=== PATIENT | female | born 1940 | race Caucasian/White ===

== ENCOUNTER 2016-04-24 11:16 | Day surgery (SDC) | payer OTHER ==
[~2016-04-24 11:16] MED LIST: AMLO5TAB22 PO; CALTCHW4 PO; COUM4TAB7 PO; COZA50TA PO; GARL500T PO; METO50CR PO; MEVA40TA PO; OCUVTAB PO; UNIS25TA2 PO; WARF3TAB PO
[2016-04-24] MEDS ORDERED: PROPOFOL 200 MG/20 ML AMP IV ONE (11:27)
[2016-04-24] MEDS ORDERED: FLEC1TAB8 PO (12:33)
[2016-04-24] MEDS ORDERED: VITA500T49 PO (12:33)
[2016-04-24] MEDS ORDERED: AMLO5TAB2 PO (12:33)
[2016-04-24] MEDS ORDERED: LOSA50TA PO (12:33)
[2016-04-24] MEDS ORDERED: GARL10CA2 PO (12:33)
[2016-04-24] MEDS ORDERED: WARF-20 PO (12:33)
[2016-04-24] MEDS ORDERED: ATOR20TA15 PO (12:33)
[2016-04-24] MEDS ORDERED: VITA100036 PO (12:33)
[2016-04-24] MEDS ORDERED: METO50TA11 PO (12:33)
[2016-04-24] MEDS ORDERED: UNIS50CA PO (12:33)
[2016-04-24] MEDS ORDERED: INSULIN HUMAN REGULAR 1,000 UNITS/10 ML VIAL SQ PRN (12:45)
[2016-04-24] MEDS ORDERED: SODIUM CHLORID 0.9% 500 ML IV SCH (13:00)
[2016-04-24] MEDS ORDERED: LACTATED RINGER'S 1000 ML IV SCH (13:00)
[2016-04-24] MEDS ORDERED: METOPROLOL TARTRATE 25 MG TAB PO PRN (13:00)
--- NOTE | 2016-04-25 17:38 | EKG ---
Date Performed: 04/24/2016 Time Performed: 12:45:04 PTAGE: 76 years EKG: Sinus bradycardia with 1st degree A-V block Poor R wave progression When compared to prior tracing patient is now in Sinus rhythm . Abnormal ECG PREVIOUS TRACING : 04/13/2014 11.35 DOCTOR: Eufemia Fiore Interpretating Date/Time 04/25/2016 17:37:09
--- NOTE | 2016-04-27 13:11 | ETE ---
Study Study Date:04/24/2016 STUDY CONCLUSIONS SUMMARY - Aortic valve: Though transvalvular gradients indicate stenosisin the moderate to severe range; visually the aortic valve opens reasonably well, more in the moderately stenotic range. Cusp separation was reduced. No evidence of vegetation. Transvalvular velocity was increased more than expected. There was moderate to severe stenosis. Moderate regurgitation. - Left ventricle: The cavity size was normal. Wall thickness was normal. Systolic function was normal. Wall motion was normal; there were no regional wall motion abnormalities. - Mitral valve: No evidence of vegetation. - Left atrium: No evidence of thrombus in the atrial cavity or appendage. The appendage was morphologically a left appendage, multilobulated, and of normal size. Emptying velocity was reduced. - Tricuspid valve: No evidence of vegetation. Mild regurgitation. - Pulmonic valve: No evidence of vegetation. If LV function is below 40, please consider prescribing an ACEI or ARB or document rationale for non-use. PROCEDURE DATA Consent: The risks, benefits, and alternatives to the procedure were explained to the patient and informed consent was obtained. Procedure: Initial setup. The patient was brought to the laboratory in the fasting state. Intravenous access was obtained. Surface ECG leads and pulse oximetric signals were monitored. Sedation. Deep sedation was administered by anesthesiology. Transesophageal echocardiography. Topical anesthesia was obtained using viscous lidocaine. A transesophageal probe was inserted by the attending critical care physician. Image quality was good. Study completion: All IVs inserted during the procedure were removed. The patient tolerated the procedure well. There were no complications. Transesophageal echocardiography. 2D, complete spectral Doppler, and color Doppler. Height: Height: 61in. Weight: Weight: 128.7lb. Body mass index: BMI: 24.4kg/m^2. Body surface area: BSA: 1.57m^2. CARDIAC ANATOMY LEFT VENTRICLE: The cavity size was normal. Wall thickness was normal. Systolic function was normal. Wall motion was normal; there were no regional wall motion abnormalities. AORTIC VALVE: Though transvalvular gradients indicate stenosisin the moderate to severe range; visually the aortic valve opens reasonably well, more in the moderately stenotic range. Trileaflet; moderately thickened, moderately calcified leaflets. Cusp separation was reduced. No evidence of vegetation. Doppler: Transvalvular velocity was increased more than expected. There was moderate to severe stenosis. Moderate regurgitation. Mean gradient: 35mm Hg (S). Peak gradient: 64mm Hg (S). Aorta: - There was no atheroma. There was no evidence for dissection. Aortic root: The aortic root was not dilated. Ascending aorta: The ascending aorta was normal in size. Aortic arch: The aortic arch was normal in size. Descending aorta: The descending aorta was normal in size. MITRAL VALVE: Structurally normal valve. Leaflet separation was normal. No evidence of vegetation. Doppler: Trace regurgitation. LEFT ATRIUM: The atrium was normal in size. No evidence of thrombus in the atrial cavity or appendage. The appendage was morphologically a left appendage, multilobulated, and of normal size. Emptying velocity was reduced. RIGHT VENTRICLE: The cavity size was normal. Wall thickness was normal. Systolic function was normal. PULMONIC VALVE: Structurally normal valve. No evidence of vegetation. TRICUSPID VALVE: Structurally normal valve. Leaflet separation was normal. No evidence of vegetation. Doppler: Mild regurgitation. PULMONARY ARTERY: The main pulmonary artery was normal-sized. RIGHT ATRIUM: The atrium was normal in size. PERICARDIUM: There was no pericardial effusion. Patient weight: 128.7lb _Ejection fraction:_ 65-75% _Fractional shortening:_ 32% up to 5Kg 5-11.5Kg 11.6-22.9Kg 23-45Kg 45-57Kg Aortic Root 7-13 <17 13-22 17-27 17-27 LA diam 6-13 <23 24-38 33-47 37-40 RVID 10-17 7-15 7-15 7-18 8-17 LVIDd 12-22 <32 24-38 33-47 37-40 LVPW 2-4 3-6 5-7 6-8 7-8 IVS 2-4 3-6 5-7 6-8 7-8 DOPPLER MEASUREMENTS ADULT NORMAL Aortic valve Peak velocity, S 401 cm/s Mean velocity, S 269 cm/s VTI, S 95.1 cm Mean gradient, S 35 mm Hg Peak gradient, S 64 mm Hg LEGEND: Mean values are shown as u=mean value. Asterisk (*) mak values outside specified normal range. Prepared and signed by Jacoby Villar [id number]
== END 2016-04-24 14:12 | disposition home or self-care (01) ==
LOC: HDIC 11:16 → HDOC 11:16
PROVIDERS: ATTEND Nuclear Medicine Nuclear Cardiology
DX: I35.0 Nonrheumatic aortic (valve) stenosis (principal); I44.0 Atrioventricular block, first degree
CPT/HCPCS: 93005; 93312; 93320; 93325

== ENCOUNTER 2016-07-09 11:04 | Emergency (ER) | payer OTHER ==
[~2016-07-09] VITALS: Ht 154.9 cm; Wt 56.5 kg
[~2016-07-09 11:04] MED LIST changes: +AMLO5TAB2 PO; -AMLO5TAB22 PO; +ATOR20TA15 PO; -CALTCHW4 PO; -COUM4TAB7 PO; -COZA50TA PO; +FLEC1TAB8 PO; +GARL10CA2 PO; -GARL500T PO; +LOSA50TA PO; -METO50CR PO; +METO50TA11 PO; -MEVA40TA PO; -OCUVTAB PO; -UNIS25TA2 PO; +UNIS50CA PO; +VITA100036 PO; +VITA500T49 PO; +WARF-20 PO; -WARF3TAB PO
[2016-07-09 11:06] VITALS: BP 179/74; PULSE 73; RESP 16; TEMP 97.7; O2SAT 99
[2016-07-09] MEDS ORDERED: SODIUM CHLOR 0.9% 1000 ML INJ 1,000 ML IV ONE (11:37)
--- NOTE | 2016-07-09 11:38 | PD ---
HPI Chief Complaint: General Weakness Time Seen by Provider: 11:38 Travel History International Travel<30 days: No Contact w/Intl Traveler<30days: No Traveled to known affect area: No History of Present Illness HPI 76-year-old female with a history of hypertension, hyperlipidemia, TIA, atrial fibrillation anticoagulated on Coumadin presents to the emergency department for evaluation of dizziness and weakness. The patient states that 10 days ago she developed a cold with nasal congestion, runny nose, sore throat and cough. States that the cough has persisted she does have some sputum production. States that 3 days after her cold began she began to have intermittent dizziness and weakness. States that she went to see her PCP and was told that her B12 was too high and that she should cut back on her supplementation. States that that was 3 days ago and she has had worsening dizziness and weakness since then. States that the dizziness is aggravated with walking, feels as though she is off balance. States that the dizziness is not constant, it does improve however the patient cannot identify any alleviating factors. She denies fever, chills, nausea, vomiting, chest pain, shortness of breath, abdominal pain, numbness or tingling, one-sided weakness. No other complaints. PCP Dr. Baker. [facility] Past Medical History Hx Anticoagulant Therapy: Yes Atrial Fibrillation: Yes Blood Disorders: No Heart Rhythm Problems: Yes Cancer: No Cardiovascular Problems: Yes (AFIB) High Cholesterol: Yes Chest Pain: No Congestive Heart Failure: No Cerebrovascular Accident: Yes Diminished Hearing: No Endocrine: No Gastrointestinal Disorders: No Genitourinary: No Hypertension: Yes Immune Disorder: No Musculoskeletal: No Neurologic: Yes Psychiatric: No Reproductive: No Respiratory: No Menopausal: Yes : 5 Para: 5 Past Surgical History Other Surgery: No (ABLATION X 2 05/2012, 07/2012) Social History Alcohol Use: No Tobacco Use: No Substance Use: No Allergies-Medications (Allergen,Severity, Reaction): Coded Allergies: BOO Inhibitors (Verified Allergy, Severe, 07/09/16) Cardizem (Verified Allergy, Severe, 07/09/16) Labetalol (Verified Allergy, Severe, 07/09/16) Uncoded Allergies: PACERONE (Allergy, Severe, 06/05/12) Reported Meds & Prescriptions Reported Meds & Active Scripts Active Meclizine (Meclizine HCl) 25 Mg Tab 25 Mg PO TID PRN 5 Days Reported Warfarin 4 Mg Tab 4 Mg PO DIRECTED Vitamin D3 (Cholecalciferol) 1,000 Unit Cap 1,000 Units PO DAILY Vitamin B12 (Cyanocobalamin) 500 Mcg Tab 1,000 Mcg PO DAILY Unisom Sleepgels (Diphenhydramine (Sleep)) 50 Mg Cap 50 Mg PO HS PRN Metoprolol Succinate ER 24 HR (Metoprolol Succinate) 50 Mg Tab 50 Mg PO DAILY Losartan (Losartan Potassium) 50 Mg Tab 50 Mg PO DAILY Garlic 10 Mg Cap Unknown Dose PO DAILY Flecainide (Flecainide Acetate) 50 Mg Tab 50 Mg PO BID Atorvastatin (Atorvastatin Calcium) 20 Mg Tab 20 Mg PO HS Amlodipine (Amlodipine Besylate) 5 Mg Tab 5 Mg PO DAILY Review of Systems Except as stated in HPI: all other systems reviewed are Neg Physical Exam Narrative GENERAL: Well-nourished and well-developed pleasant patient in no acute distress who is nontoxic appearing. SKIN: Warm and dry. HEAD: Normocephalic and atraumatic. EYES: No injection, drainage, or hyphema noted. PERRLA. EOMI. ENT: No nasal drainage noted. Oropharynx is clear. The tympanic membranes have mild effusion bilaterally but no erythema, bulging or loss of landmarks. NECK: Supple and the trachea is midline. CARDIOVASCULAR: Regular rate and rhythm. RESPIRATORY: Breath sounds are equal bilaterally with no accessory muscle use, wheezing, rhonchi, or crackles. GASTROINTESTINAL: Abdomen is soft, non-tender, and nondistended. MUSCULOSKELETAL: No obvious deformities, swelling, cyanosis, or ecchymosis is present throughout the upper and lower extremities. Patient has full range of motion without any signs of neurovascular compromise. Strength 5/5 upper and lower extremities and equal bilaterally. NEUROLOGICAL: Awake, alert, and oriented. Normal speech. [id number] test is normal. Finger to nose test is normal. Patient able to stand without difficulty but once she began to ambulate she lost her balance and required assistance. Cranial nerves are grossly intact. Data Data Last Documented VS Vital Signs Date Time Temp Pulse Resp B/P Pulse Ox O2 Delivery O2 Flow Rate FiO2 07/09/16 13:05 60 174/77 100 Room Air 07/09/16 11:55 16 07/09/16 11:06 97.7 Orders Electrocardiogram (07/09/16 11:37) Complete Blood Count With Diff (07/09/16 11:37) Comprehensive Metabolic Panel (07/09/16 11:37) Magnesium (Mg) (07/09/16 11:37) Troponin I (07/09/16 11:37) Act Partial Throm Time (Ptt) (07/09/16 11:37) Prothrombin Time / Inr (Pt) (07/09/16 11:37) Urinalysis - C+S If Indicated (07/09/16 11:37) Chest, Single Ap (07/09/16 11:37) Ct Brain W/O Iv Contrast(Rout) (07/09/16 11:37) Ecg Monitoring (07/09/16 11:37) Iv Access Insert/Monitor (07/09/16 11:37) Oximetry (07/09/16 11:37) Meclizine (Antivert) (07/09/16 11:45) Sodium Chloride 0.9% Flush (Ns Flush) (07/09/16 11:45) Sodium Chlor 0.9% 1000 Ml Inj (Ns 1000 M (07/09/16 11:37) Mra Brain W/O Contrast (Cow) (07/09/16 ) Alprazolam (Xanax) (07/09/16 12:30) Diazepam (Valium) (07/09/16 12:30) Mri Brain W/O Contrast (07/09/16 ) Labs Laboratory Tests Test 07/09/16 07/09/16 11:45 12:35 White Blood Count 6.9 TH/MM3 Red Blood Count 4.38 MIL/MM3 Hemoglobin 12.9 GM/DL Hematocrit 37.2 % Mean Corpuscular Volume 84.9 FL Mean Corpuscular Hemoglobin 29.4 PG Mean Corpuscular Hemoglobin 34.7 % Concent Red Cell Distribution Width 14.5 % Platelet Count 385 TH/MM3 Mean Platelet Volume 7.6 FL Neutrophils (%) (Auto) 74.3 % Lymphocytes (%) (Auto) 12.4 % Monocytes (%) (Auto) 11.4 % Eosinophils (%) (Auto) 1.0 % Basophils (%) (Auto) 0.9 % Neutrophils # (Auto) 5.2 TH/MM3 Lymphocytes # (Auto) 0.9 TH/MM3 Monocytes # (Auto) 0.8 TH/MM3 Eosinophils # (Auto) 0.1 TH/MM3 Basophils # (Auto) 0.1 TH/MM3 CBC Comment DIFF FINAL Differential Comment Prothrombin Time 53.2 SEC Prothromb Time International 4.5 RATIO Ratio Activated Partial 43.6 SEC Thromboplast Time Sodium Level 134 MEQ/L Potassium Level 4.2 MEQ/L Chloride Level 100 MEQ/L Carbon Dioxide Level 26.4 MEQ/L Anion Gap 8 MEQ/L Blood Urea Nitrogen 10 MG/DL Creatinine 0.76 MG/DL Estimat Glomerular Filtration 74 ML/MIN Rate Random Glucose 117 MG/DL Calcium Level 9.4 MG/DL Magnesium Level 2.1 MG/DL Total Bilirubin 0.5 MG/DL Aspartate Amino Transf 19 U/L (AST/SGOT) Alanine Aminotransferase 23 U/L (ALT/SGPT) Alkaline Phosphatase 85 U/L Troponin I LESS THAN 0.02 NG/ML Total Protein 7.4 GM/DL Albumin 3.6 GM/DL Urine Color LIGHT-YELLOW Urine Turbidity HAZY Urine pH 8.0 Urine Specific [place] 1.007 Urine Protein NEG mg/dL Urine Glucose (UA) NEG mg/dL Urine Ketones NEG mg/dL Urine Occult Blood NEG Urine Nitrite NEG Urine Bilirubin NEG Urine Urobilinogen LESS THAN 2.0 MG/DL Urine Leukocyte Esterase NEG Urine RBC LESS THAN 1 /hpf Urine WBC 1 /hpf Urine Amorphous Sediment FEW Microscopic Urinalysis Comment CULT NOT INDICATED MDM Medical Decision Making Medical Screen Exam Complete: Yes Emergency Medical Condition: Yes Differential Diagnosis Dehydration versus electrolyte abnormality versus pneumonia versus CVA versus intracranial hemorrhage Narrative Course 76-year-old female returns to the emergency department for evaluation of dizziness and weakness. Patient is afebrile. She is slightly hypertensive with a blood pressure 179/74. Otherwise vital signs within normal limits. On physical examination the patient is noted to have difficulty ambulating without assistance and loses her balance. IV access is obtained, labs have been drawn and sent. Patient is placed on cardiac telemetry and pulse oximetry monitoring. Head CT has been ordered to rule out intracranial hemorrhage. MRI has been ordered and is pending to rule out CVA. EKG shows normal sinus rhythm with no acute ST elevations or depressions. CBC is unremarkable. CMP is unremarkable. Troponin is less than 0.02. Coags show INR is slightly supratherapeutic at 4.5. Urinalysis is unremarkable. Chest x-ray is negative. Head CT is negative. MRA of brain is negative. MRI of the brain shows nonspecific foci of increased T2 white matter signal however involvement of the corpus callosum as well as the subcortical U fibers of the right parietal lobe suggestive possible demyelination secondary to multiple sclerosis, correlate with patient's medical history. Pattern is not significant change as compared to prior MRI. No evidence of acute infarct. Patient reports improvement of dizziness after meclizine. I discussed all findings with the patient and family. She is able to ambulate safely and is eager to go home. She is instructed to follow-up as an outpatient with neurologist Dr. Singh regarding nonspecific MRI findings and dizziness as well as follow-up with her PCP. Patient verbalizes understanding and agreement with treatment plan. I discussed the case with my attending physician Dr. Squires who is aware of the patients history, physical examination findings, and treatment plan. Physician Communication Physician Communication I spoke with Dr. Singh neurologist on-call regarding the patient's MRI findings , she feels these nonspecific findings are likely not indicative of MS as patient has no prior history. She agrees this is appropriate for outpatient follow-up. Diagnosis Primary Impression: Dizziness Referrals: Alea Singh MD Primary Care Physician Patient Instructions: Dizziness (ED), General Instructions Additional Instructions: Take medication as prescribed. Follow-up with Dr. Singh and your PCP. Return to the ED for any acute worsening of symptoms. Med/Other Pt SpecificInfo: Prescription(s) given Scripts Meclizine 25 Mg Tab25 Mg PO TID PRN (VERTIGO) 5 Days Ref 0 Prov:Topher Squires MD 07/09/16 Disposition: 01 DISCHARGE HOME Condition: Stable Jannette Gilbert Jul 09, 2016 11:38
[2016-07-09] MEDS ORDERED: MECLIZINE HCL 25 MG TAB PO ONE (11:45)
[2016-07-09] MEDS ORDERED: SODIUM CHLORIDE 0.9% FLUSH 10 ML FLUSH IVF PRN (11:45)
[2016-07-09 11:55] VITALS: BP 187/91; PULSE 60; RESP 16; O2SAT 100
[2016-07-09 11:59] LABS: AUTOMATED NEUTROPHIL # 5.2 TH/MM3 (1.8-7.7); BASOPHIL # 0.1 TH/MM3 (0-0.2); BASOPHIL % 0.9 % (0.0-2.0); EOSINOPHIL # 0.1 TH/MM3 (0-0.4); HEMATOCRIT 37.2 % (35.0-46.0); HEMO FLAGS DIFF FINAL; LYMPH % 12.4 % (9.0-44.0); LYMPHOCYTE # 0.9 TH/MM3 (1.0-4.8); MEAN CELL VOLUME 84.9 FL (80.0-100.0); MEAN CORPUSCULAR HEMOGLOBIN 29.4 PG (27.0-34.0); MEAN CORPUSCULAR HGB CONC 34.7 % (32.0-36.0); MONO % 11.4 % (0.0-8.0); NEUT % 74.3 % (16.0-70.0); PLATELET COUNT 385 TH/MM3 (150-450); RED BLOOD COUNT 4.38 MIL/MM3 (4.00-5.30); RED CELL DISTRIBUTION WIDTH 14.5 % (11.6-17.2); WHITE BLOOD COUNT 6.9 TH/MM3 (4.0-11.0)
[2016-07-09 12:08] LABS: APTT (PATIENT) 43.6 SEC (24.3-30.1); INTERNATIONAL NORMALIZED RATIO 4.5 RATIO; PROTHROMBIN TIME - PATIENT 53.2 SEC (9.8-11.6)
--- NOTE | 2016-07-09 12:24 | RADRPT ---
EXAM DATE/TIME: 07/09/2016 11:33 [facility] COMPARISON: CHEST SINGLE AP, June 05, 2012, 13:39. INDICATIONS : Cough MEDICAL HISTORY : Hypertension. SURGICAL HISTORY : None. ENCOUNTER: Initial ACUITY: 2 weeks PAIN SCORE: 0/10 LOCATION: chest FINDINGS: A single view of the chest demonstrates the lungs to be symmetrically aerated without evidence of mas s, infiltrate or effusion. The cardiomediastinal contours are unremarkable. Osseous structures are intact. CONCLUSION: No acute disease. Kassy Steen MD on July 09, 2016 at 12:12 Board Certified Radiologist. This report was verified electronically.
[2016-07-09 12:25] LABS: ANION GAP 8 MEQ/L (5-15); AST (GOT) 19 U/L (15-37); BICARBONATE 26.4 MEQ/L (21.0-32.0); BLOOD UREA NITROGEN 10 MG/DL (7-18); CHLORIDE 100 MEQ/L (98-107); GLOMERULAR FILTRATION RATE 74 ML/MIN (>89); MAGNESIUM 2.1 MG/DL (1.5-2.5); POTASSIUM 4.2 MEQ/L (3.5-5.1); SODIUM (NA) 134 MEQ/L (136-145)
[2016-07-09 12:30] LABS: ALKALINE PHOSPHATASE 85 U/L (45-117); ALT (GPT) 23 U/L (10-53); TOTAL BILIRUBIN ADULT 0.5 MG/DL (0.2-1.0)
[2016-07-09] MEDS ORDERED: ALPRAZolam 0.25 MG TAB PO ONE (12:30)
[2016-07-09] MEDS ORDERED: DIAZEPAM 5 MG TAB PO ONE (12:30)
--- NOTE | 2016-07-09 13:03 | RADRPT ---
EXAM DATE/TIME: 07/09/2016 12:39 [facility] COMPARISON: CT BRAIN W/O CONTRAST, December 08, 2011, 10:03. INDICATIONS : General weakness and dizziness for one week. RADIATION DOSE: 30.94 CTDIvol (mGy) MEDICAL HISTORY : Stroke. Hypertension. SURGICAL HISTORY : None. ENCOUNTER: Initial ACUITY: 1 day PAIN SCALE: 0/10 LOCATION: Bilateral head TECHNIQUE: Multiple contiguous axial images were obtained of the head. Using automated exposure control and adj ustment of the mA and/or kV according to patient size, radiation dose was kept as low as reasonably a chievable to obtain optimal diagnostic quality images. FINDINGS: CEREBRUM: The ventricles are normal for age. No evidence of midline shift, mass lesion, hemorrhage or acute in farction. No extra-axial fluid collections are seen. POSTERIOR FOSSA: The cerebellum and brainstem are intact. The 4th ventricle is midline. The cerebellopontine angle i s unremarkable. EXTRACRANIAL: The visualized portion of the orbits is intact. SKULL: The calvaria is intact. No evidence of skull fracture. CONCLUSION: No acute disease. Kassy Steen MD on July 09, 2016 at 13:01 Board Certified Radiologist. This report was verified electronically.
[2016-07-09 13:05] VITALS: BP 174/77; PULSE 60; O2SAT 100
[2016-07-09 13:09] LABS: BLOOD, URINE NEG (NEG); COMMENT (UR) CULT NOT INDICATED; CULTURE IF INDICATED CULT NOT INDICATED; GLUCOSE,URINE NEG (NEG); KETONE, URINE NEG (NEG); NITRITE,URINE NEG (NEG); URINE COLOR LIGHT-YELLOW (YELLW/STRAW)
--- NOTE | 2016-07-09 14:29 | RADRPT ---
EXAM DATE/TIME: 07/09/2016 13:19 [facility] COMPARISON: MRI BRAIN W & W/O CONTRAST, December 08, 2011, 18:29. MRA BRAIN W/O CONTRAST, December 08, 2011, 18:29. CT BRAIN W/O CONTRAST, July 09, 2016, 12:39. INDICATIONS : CVA. Dizziness. MEDICAL HISTORY : Hypertension. SURGICAL HISTORY : None. ENCOUNTER: Initial ACUITY: 1 week PAIN SCORE: 0/10 LOCATION: cranial TECHNIQUE: Multiplanar, multisequence MRI of the brain was performed without contrast. FINDINGS: CEREBRUM: The ventricles are normal for age. No evidence of midline shift, mass lesion, hemorrhage or acute in farction. No extraaxial fluid collections are seen. The pituitary gland and suprasellar cistern are normal in configuration. WHITE MATTER: Scattered foci of increased T2 signal seen predominantly in a periventricular distribution, however, some do appear to abut the corpus callosum on the right and there is an area of focal increased T2 si gnal seen within the subcortical white matter involving the right parietal lobe. No associated restri cted diffusion. POSTERIOR FOSSA: The cerebellum and brainstem are intact. The 4th ventricle is midline. The cerebellopontine angle is unremarkable. The cerebellar tonsils are normal in position. DIFFUSION IMAGING: No focal areas of restricted diffusion are seen. No evidence of acute infarction. EXTRACRANIAL: The visualized portions of the orbits and paranasal sinuses are unremarkable. CONCLUSION: Nonspecific foci of increased T2 white matter signal, however, involvement of the corpus callosum as well as the subcortical U fibers of the right parietal lobe suggest possible demyelination secondary to multiple sclerosis, correlate with patient's medical history. This pattern is not significantly ch anged as compared to the prior MRI. No evidence of acute infarct. Kassy Steen MD on July 09, 2016 at 14:24 Board Certified Radiologist. This report was verified electronically.
--- NOTE | 2016-07-09 14:30 | RADRPT ---
EXAM DATE/TIME: 07/09/2016 13:19 [facility] COMPARISON: MRA BRAIN W/O CONTRAST, December 08, 2011, 18:29. INDICATIONS : CVA. Dizziness. MEDICAL HISTORY : Hypertension. SURGICAL HISTORY : None. ENCOUNTER: Initial ACUITY: 1 day PAIN SCORE: 0/10 LOCATION: cranial Please note a normal MRA of the brain does not entirely exclude the possibility of a small aneurysm, nor the possibility of distal intracranial vessel disease. TECHNIQUE: 3D time of flight MRA was performed. Source images, multiplanar STS MIP, and 3D volume MIP reconstru ctions were reviewed. FINDINGS: There is excellent visualization of the major intracranial arteries out to the second-order branch ve ssels. There is no evidence for aneurysm, vessel truncation or stenosis, and no evidence for vascula r malformation. CONCLUSION: Normal examination. Kassy Steen MD on July 09, 2016 at 14:28 Board Certified Radiologist. This report was verified electronically.
[2016-07-09] MEDS ORDERED: MECL-62 PO (15:36)
--- NOTE | 2016-07-10 14:08 | EKG ---
Date Performed: 07/09/2016 Time Performed: 12:07:21 PTAGE: 76 years EKG: Sinus rhythm WITH FIRST DEGREE AV BLOCK MODERATE ST DEPRESSION Since previous tracing, no significant change note d ABNORMAL ECG PREVIOUS TRACING : 04/24/2016 12.45 DOCTOR: Ophelia Teran Interpretating Date/Time 07/10/2016 14:07:10
== END 2016-07-09 15:58 | disposition home or self-care (01) ==
LOC: NEPC 11:04
DX: R42 Dizziness and giddiness (principal); R53.1 Weakness; I10 Essential (primary) hypertension; Z86.73 Personal history of transient ischemic attack (TIA), and cerebral infarction without residual deficits; Z79.01 Long term (current) use of anticoagulants; Z79.899 Other long term (current) drug therapy
CPT/HCPCS: 70450; 70544; 70551; 71010; 80053; 81001; 83735; 84484; 85025; 85610; 85730; 93005; 99285; J7030

== ENCOUNTER 2016-08-02 15:00 | Emergency (ER) | payer OTHER ==
[~2016-08-02 15:00] MED LIST changes: +MECL-62 PO
[2016-08-02 15:02] VITALS: BP 170/84; PULSE 66; RESP 18; TEMP 98.1; O2SAT 99
== END 2016-08-02 15:07 | disposition left against medical advice (07) ==
LOC: NED 15:00
DX: I51.9 Heart disease, unspecified (principal)
CPT/HCPCS: 99281